=== PATIENT | male | born 1950 | race Caucasian/White ===

== ENCOUNTER 2023-06-13 09:10 | Day surgery (SDC) | payer OTHER ==
[2023-05-30 11:37] LABS: Lymphocytes % 34.1 % (15.3-44.8); MCV 96.9 fL (80-100); MPV 7.8 fL (7.6-11.3); Platelets 426 thou/uL (152-406); RBC Red Blood Cell Count 4.64 M/uL (4.33-5.43)
[2023-05-30 11:43] LABS: Protime INR 1.15
[2023-05-30 11:51] LABS: Potassium 4.1 mEq/L (3.5-5.1)
--- NOTE | 2023-05-30 12:13 | RAD REPORT ---
EXAM DESCRIPTION: RAD - Chest Pa And Lat (2 Views) - 05/30/2023 11:41 am CLINICAL HISTORY: pre op for surgery COMPARISON: Chest Pa And Lat (2 Views) dated 09/18/2022; CHEST PA AND LAT 2 VIEW dated 06/22/2015; [facility] PA AND LAT 2 VIEW dated 11/20/2013; CHEST PA AND LAT 2 VIEW dated 10/12/2013 TECHNIQUE: PA and lateral views of the chest were obtained. FINDINGS: The lungs are clear apart from stable left basilar irregular focus of opacification, may r elate to scarring. Heart size is normal and central vasculature is within normal limits. No pleural e ffusion or pneumothorax seen. No acute bony finding noted. IMPRESSION: No acute cardiopulmonary process.
--- NOTE | 2023-05-30 12:27 | EKG ---
Test Date: 2023-05-30 Test Time: 11:26:10 [employer]: SERGIO MEASUREMENT RESULTS: Intervals: Rate: 74 FL: 196 QRSD: 86 QT: 416 QTc: 461 [place]: P: 67 FL: 196 QRS: 52 T: 110 INTERPRETIVE STATEMENTS: Normal sinus rhythm T wave abnormality, consider lateral ischemia Prolonged QT Abnormal ECG Compared to ECG 07/12/2015 14:00:35 T-wave abnormality now present Possible ischemia now present Prolonged QT interval now present Sinus tachycardia no longer present Electronically Signed On 05-30-23 12:26:24 CDT by Michele Chaudhary
[~2023-06-13 09:10] MED LIST: GEMCITABINE HCL 23.6 ML IS ONE
[2023-06-13] MEDS ORDERED: NA CHLORIDE 0.9% 1,000 ML ONE (09:47)
[2023-06-13] MEDS ORDERED: ONDANSETRON 4 MG/2 ML VIAL ONE (10:02)
[2023-06-13] MEDS ORDERED: FENTANYL CITR 100 MCG/2 ML ONE ×3 (10:02→11:54)
[2023-06-13] MEDS ORDERED: propofoL 200 MG/20 ML VIAL IV ONE ×2 (10:02→14:54)
[2023-06-13] MEDS ORDERED: LIDOCAINE 1% MPF 5 ML VIAL ONE (11:08)
[2023-06-13] MEDS: CEFAZOLIN SODIUM 2 GM/VIAL ONE ×2 (11:17→11:28)
[2023-06-13] MEDS ORDERED: EPHEDRINE SULF 50 MG/ML VIAL ONE (11:39)
[2023-06-13] MEDS ORDERED: GLYCOPYRROLATE 0.2 MG/ML SYR ONE ×2 (11:40→12:21)
[2023-06-13] MEDS ORDERED: ROCURONIUM 50 MG/5 ML VIAL IV ONE (11:50)
[2023-06-13] MEDS ORDERED: dexAMETHasone 10 MG/ML VIAL ONE (11:54)
[2023-06-13] MEDS ORDERED: NEOSTIGMINE 1 MG/ML -10 ML VIAL ONE (12:21)
[2023-06-13] MEDS: HYDROMORPHONE HCL 1 MG/ML INJ ONE ×2 (12:30→12:35)
[2023-06-13] MEDS ORDERED: DIAZEPAM 5 MG TABLET PO ONE (12:36)
[2023-06-13] MEDS ORDERED: oxyBUTYnin chloride 5 MG TAB ONE (13:46)
[2023-06-13 16:33] VITALS: BP 167/92; TEMP 97.7; O2SAT 93
[2023-06-14] MEDS ORDERED: OXYBUTYNIN ER 5 MG TAB PO SCH (09:00)
--- NOTE | 2023-06-17 12:47 | OP ---
Surgeon: RADHA WOODWARD Preoperative Diagnosis: Left lateral wall involving the trigone and left ureteral orifice bladder tu mor approximately 3 cm in diameter. Postoperative Diagnoses: 1.Left lateral wall involving the trigone and left ureteral orifice bladder tumor approximately 3 cm in diameter. 2.Tumor visually involving the left ureteral orifice and intramural ureter. Principal Procedures: 1.Cystoscopy. 2.Transurethral resection of a bladder tumor. 3.Urethral Jackson catheter placement. 4.Intravesical gemcitabine 2 g in 50 cc normal saline. Indication For Procedure: Mr. Saenz presented to the Urology [facility] with gross hematuria. He denied any bothersome LUTS, but he is an active smoker of over 50 years. He underwent cystoscopic evaluati on as an outpatient on 05/22/2023, which revealed the presence of the bladder tumor described above. He had previously undergone a CT urography on 05/21/2023, where no other suspicious upper tract abno rmalities or filling defects were identified, and there was no lymphadenopathy or other signs of extr avesical metastatic disease. As a result, he was counseled on the need for resection of a bladder tu mor, and I specifically counseled him then and again today in preoperative holding about the likeliho od that the tumor involves the ureteral orifice and the potential need for ureteral orifice resection . I further explained that if this occurs, there is a significant chance he may require a percutaneo us nephrostomy tube to be placed with a nephroureteral stent if the orifice ends up sealing over due to scar. He and his expressed understanding of that potential need. Procedure In Detail: The patient was consented in the preoperative holding area before being transfe rred to the operative suite, where general anesthesia was induced. He was given Ancef 2 g IV antimic robial prophylaxis, and pneumo boots were provided for DVT prophylaxis. He was placed in the lithoto my position, padded and secured to the table appropriately. His genitalia were prepped with [place] s, and he was draped in standard fashion. The case was begun using urethral sounds to dilate the laenn tus and fossa navicularis to 28-Nicar[place]uan. I then utilized the 26-[place]icar[place]uan bipolar resectoscope sheath an d a visual obturator to traverse the urethra and into the bladder after navigating beyond significant ly elevated median bar with intravesical projection of the median lobe abutting the trigone associate d with significant lateral lobar hypertrophy consistent with obstructing BPH. Upon entry into the bl adder, I decompressed it of fluid and urine, and switched it for the resectoscope loop. I then surve yed the bladder in its entirety. Other than the approximately 3 cm bladder tumor located overlying t he left ureteral orifice, which I specifically verified by attempting to move components of the tumor and look for the orifice, but was unable to visualize it because it involved the left one-third of t he trigone and extended into the lateral wall in a nodular fashion, the ureteral orifice was not inde pendently visible. As a result, without any additional tumors noted throughout the bladder on survey , I then began to resect the bladder tumor using the bipolar resection loop. The tumor was resected superficially and then down into the deeper layers and I then resected into the muscular layers to en sure all visible nodular tumor had been removed. Once I got down into the deeper muscular layers and there was a filmy layer of muscle overlying fat, I was able to visualize and effluxing a partially r esected ureteral orifice. I surveyed that orifice and as there was tumor that had been resected slig htly deeper than the level, where I had resected next to the ureteral orifice, I suspected further in volvement of the ureteral orifice. As a result, I resected initially the first 3-4 mm of the left ur eteral orifice. Upon doing this, there was some slightly frondular papillary tissue that did seem to emanate from the ureteral orifice suggestive of additional tumor residual there. So I resected deep er into the orifice until no additional tissue was emanating from within. Careful fulguration was un dertaken avoiding the area over the ureteral orifice until the site was hemostatic. Of note, I remov ed the bladder tumor in stages including the initial bladder tumor resection, then the ureteral orifi ce resection as a second specimen, and then in the end, I did a separate cold cup biopsy at the base of the tumor just distal to the ureteral orifice opening at the base of the resection site in the [facility] to ensure no additional residual tumor located there. These were sent for pathologic analysis as : 1.Bladder tumor. 2.Ureteral orifice resection in 2 samples. 3.Base of bladder tumor resection site cold cup biopsy. I spoke to the pathologist and explained that 2 samples of resection of the ureteral orifice were pro vided. If 1 sample is positive and the other is negative, then negative by definition is the more pr oximal sample taken. Once hemostatic with the bladder decompressed, I then Abebe evacuated all debri s from within the bladder before back filling the bladder and placing an 18-[place] catheter with 20 c c of sterile water in the balloon after removing the resectoscope. I then decompressed his bladder o f fluid and urine and retrograde instilled approximately 52 cc of 2 g of gemcitabine in normal saline . The catheter was then connected to a leg bag after being clamped to hold the chemotherapy in place , his genitalia were toweled off to prevent chemotherapy contacting his skin, and he was taken out of the lithotomy position. He was then awakened from general anesthesia, transferred to a stretcher, a nd then transferred to the recovery room in good condition. Complications: None. Discharge Disposition: He will require renal ultrasound followup likely within the next 2-3 weeks to ensure absence of hydronephrosis developing from stenosis or stricturing of the resected left ureter al orifice. Should he describe symptoms of left flank pain in the interim, we will obtain the ultras ound sooner to evaluate for hydronephrosis. If hydronephrosis identified, he will require placement of a left percutaneous nephrostomy tube with preferable placement of a nephroureteral stent into the bladder. Otherwise, he should follow up in the Urology Clinic in about 2 weeks' time to discuss the pathology of the resection and determine next steps. I also will discharge him with urethral Jackson catheter fo r the next few days and since he has significant obstruction due to BPH, so that he does not have ret ention, we will have him follow up on Saturday morning for a voiding trial. Saturday is also sufficient if Saturday not an option. He will be given antibiotic sufficient to cover him through the next 5 day s. CRISTO/MODL Voice ID: [id number] Report ID: [id number]
== END 2023-06-13 14:45 | disposition home or self-care (01) ==
LOC: OR 09:10
PROVIDERS: ATTEND Urology
PROC: 3E0K705 Introduction of Other Antineoplastic into Genitourinary Tract, Via Natural or Artificial Opening (ICD-10-PCS; 2023-06-13)
PROC: 0TBB8ZZ Excision of Bladder, Via Natural or Artificial Opening Endoscopic (ICD-10-PCS; principal; 2023-06-13 10:45)
DX: C67.9 Malignant neoplasm of bladder, unspecified (principal); R31.0 Gross hematuria
CPT/HCPCS: 52235; 51720; 93005; 87088; 85025; 87086; 80048; 36415; 85610; 82947; 88305; 88307; 71046; J9201; J2704; J2710; J2001; J3010 ×2; J1100; J1170; J2405; J7030

== ENCOUNTER 2023-08-07 08:42 | Day surgery (SDC) | payer OTHER ==
[2023-08-07] MEDS ORDERED: NA CHLORIDE 0.9% 1,000 ML ONE (09:13)
[2023-08-07] MEDS ORDERED: CEFAZOLIN SODIUM 2 GM/VIAL ONE (09:13)
[2023-08-07] MEDS ORDERED: LIDOCAINE 2% MPF 5 ML VIAL ONE (11:12)
[2023-08-07] MEDS ORDERED: ONDANSETRON 4 MG/2 ML VIAL ONE (11:12)
[2023-08-07] MEDS ORDERED: propofoL 200 MG/20 ML VIAL IV ONE (11:12)
[2023-08-07] MEDS ORDERED: FENTANYL CITR 100 MCG/2 ML ONE (11:13)
[2023-08-07] MEDS ORDERED: NS 0.9% VIAL 20 ML ONE (11:17)
[2023-08-07] MEDS ORDERED: HEPARIN 5000 UNIT/ML 1 ML VIAL ONE (11:18)
[2023-08-07] MEDS ORDERED: LIDOCAINE 1% 20 ML MDV ONE (11:18)
[2023-08-07] MEDS ORDERED: Mastisol Adhesive Liq ONE (12:19)
--- NOTE | 2023-08-07 12:31 | RAD REPORT ---
EXAM DESCRIPTION: RAD - Fluoroscopy <1 Hour - 08/07/2023 12:26 pm CLINICAL HISTORY: Venous catheter insertion. PORT-A-CATH COMPARISON: AAA Screening dated 03/10/2019 FINDINGS: Fluoroscopic imaging is submitted from placement of a venous catheter. Details of the pro cedure not available. Fluoroscopy time: 0.4 minutes
--- NOTE | 2023-08-07 12:34 | P.OP ---
Date of Service: 08/07/23 Preop diagnosis: Bladder cancer Postop diagnosis: Same Procedure performed: Placement of right IJ Port-A-Cath device, utilization of f luoroscopy and ultrasound Surgeon: Doc Ervin MD Doughmaker: None Estimated blood loss: Minimal Specimen: None Findings: Normal anatomy Anesthesia: General Complications: None Drains: None Disposition: Recovery room Operative note: Patient brought to the OR and placed in supine position. General anesthesia begun. Patient prepped and draped in the usual sterile fashion. Lidocaine 1% infiltrated locally. Utilizing ultrasound guidance right IJ vein identified. 18-gauge needle used to access the vein. Guidewire passed and position confirmed with fluoroscopy. 3 cm counterincision made on the right anterior chest. Pocket created. Bleeding controlled cautery. Catheter tunneled between the 2 wounds. Surgical technique used to put the tip of the catheter in the right atrium SVC junction. Catheter attached to the Port-A-Cath device. Port-A-Cath device attached to subcutaneous tissue with 3-0 Vicryl. 3- 0 chromic used to reapproximate subcutaneous tissue and close skin. Port flushed with heparin and packed with heparin with good blood flow. Sterile saline applied. Patient awakened and taken to recovery room in good general condition. CC: Dr. Martinez's office
[2023-08-07] MEDS ORDERED: HYDROCODONE/APAP 7.5/325 MG TAB PO PRN (12:37)
--- NOTE | 2023-08-07 12:58 | RAD REPORT ---
EXAM DESCRIPTION: RADChest Single View08/07/2023 12:48 pm CLINICAL HISTORY: Device placement/central venous catheter placement IMPRESSION: Central venous catheter has been placed into the superior vena cava. No pneumothorax
[2023-08-07 13:37] VITALS: BP 156/94; TEMP 97.1; O2SAT 99
== END 2023-08-07 14:02 | disposition home or self-care (01) ==
LOC: OR 08:42
PROVIDERS: ATTEND Surgery
PROC: 0JH60WZ Insertion of Totally Implantable Vascular Access Device into Chest Subcutaneous Tissue and Fascia, Open Approach (ICD-10-PCS; principal; 2023-08-07 10:45)
DX: C67.9 Malignant neoplasm of bladder, unspecified (principal)
CPT/HCPCS: 82947; 71045; 36561; J1644 ×2; A4216; J2704; J2001 ×2; J3010; J2405; J7030; C1788; 76000